=== PATIENT | female | born 1950 | race African-American/Black ===

== ENCOUNTER 2023-03-01 04:49 | Day surgery (SDC) | payer OTHER ==
[2023-02-24 17:01] VITALS: BMI 21.6
[2023-03-01] MEDS ORDERED: MIDAZOLAM HCL 2 MG/2 ML SINGLE DOSE VIAL ONE (12:25)
[2023-03-01] MEDS ORDERED: FENTANYL CITRATE/PF 50 MCG/ML VIAL ONE (12:25)
[2023-03-01] MEDS ORDERED: MIDAZOLAM HCL 2 MG/2 ML SINGLE DOSE VIAL IVPUSH ONE (13:00)
[2023-03-01 13:38] VITALS: RESP 16
[2023-03-01 17:30] LABS: HIV INTERPRETATION NEGATIVE (NEGATIVE)
[2023-03-01 18:35] VITALS: TEMP 97.6
[2023-03-01 18:38] VITALS: BP 138/70; PULSE 62
== END 2023-03-01 17:00 | disposition home or self-care (01) ==
LOC: JRADIR 04:49
PROVIDERS: ATTEND Internal Medicine Hematology & Oncology
PROC: 0FB03ZX Excision of Liver, Percutaneous Approach, Diagnostic (ICD-10-PCS; principal; 2023-03-01)
DX: C18.9 Malignant neoplasm of colon, unspecified (principal); C78.7 Secondary malignant neoplasm of liver and intrahepatic bile duct
CPT/HCPCS: 36415; 47000; 76705-TC; 76942-TC; 86704; 86705; 87340; 87389; 87517; 87522; 87899; 88307-TC; 88341-TC; 88342-TC

== ENCOUNTER 2023-08-06 10:06 | Emergency (ER) | payer OTHER ==
[2023-08-06 10:24] VITALS: BMI 23.3
[2023-08-06 11:38] LABS: POTASSIUM 4.1 mmol/L (3.5-5.1)
[2023-08-06 11:40] LABS: CALCIUM 9.2 mg/dL (8.5-10.1)
[2023-08-06 11:41] LABS: ALBUMIN 3.2 g/dl (3.4-5.0); BLOOD UREA NITROGEN 14.7 mg/dL (7-18); MAGNESIUM 2.3 mg/dL (1.8-2.4)
[2023-08-06 11:44] LABS: CREATININE 0.9 mg/dL (0.55-1.3)
[2023-08-06 11:46] LABS: BILIRUBIN,TOTAL 0.5 mg/dL (0.2-1); TOT PROT 7.3 g/dl (6.4-8.2)
[2023-08-06 12:27] LABS: BASO % 0.6 % (0-2.0); EOS % 1.6 % (0-4.5); HEMATOCRIT 35.3 % (32.4-45.2); HEMOGLOBIN 11.8 GM/dL (10.7-15.3); LYMPH % 13.7 % (8-40); MCH 28.1 pg (25.7-33.7); MCHC 33.3 g/dl (32.0-36.0); MEAN CELL VOLUME 84.3 fl (80-96); MEAN PLT VOLUME 7.1 fl (7.5-11.1); MONO % 8.2 % (3.8-10.2); NEUT % 75.9 % (42.8-82.8); PLATELET COUNT 429 10^3/uL (134-434); RBC 4.19 M/mm3 (3.60-5.2); RDW 16.6 % (11.6-15.6); WHITE BLOOD COUNT 5.9 K/mm3 (4.0-10.0)
[2023-08-06 12:37] LABS: INR 1.02 (0.83-1.09); PROTHROMBIN TIME (PATIENT) 11.8 SEC (9.7-13.0)
[2023-08-06 12:40] LABS: ACTIVATED PTT 32.5 SECONDS (25.2-36.5)
[2023-08-06 12:53] LABS: POTASSIUM 3.7 mmol/L (3.5-5.1)
[2023-08-06 12:54] LABS: CALCIUM 9.5 mg/dL (8.5-10.1)
[2023-08-06 12:55] LABS: ALBUMIN 3.5 g/dl (3.4-5.0); BLOOD UREA NITROGEN 14.7 mg/dL (7-18)
[2023-08-06 12:58] LABS: CREATININE 0.9 mg/dL (0.55-1.3)
[2023-08-06 13:00] LABS: BILIRUBIN,TOTAL 0.5 mg/dL (0.2-1)
[2023-08-06 13:30] LABS: PH,URINE 5.5 (5.0-8.0); URINE APPEARANCE Clear; URINE BILIRUBIN Negative (NEGATIVE); URINE COLOR Yellow; URINE GLUCOSE (UA) Negative (NEGATIVE); URINE KETONE Negative (NEGATIVE); URINE LEUK ESTERASE Negative (NEGATIVE); URINE NITRITE Negative (NEGATIVE); URINE PROTEIN Negative (NEGATIVE); URINE UROBILINOGEN 0.2 mg/dL (0.2-1.0)
[2023-08-06 16:50] VITALS: BP 135/76; PULSE 78; RESP 16; TEMP 98.2
== END 2023-08-06 17:00 ==
LOC: JER 10:06
DX: S01.111A Laceration without foreign body of right eyelid and periocular area, initial encounter (principal); S01.112A Laceration without foreign body of left eyelid and periocular area, initial encounter; X58.XXXA Exposure to other specified factors, initial encounter; Z20.822 Contact with and (suspected) exposure to COVID-19
CPT/HCPCS: 0241U-QW; 36415; 70450-TC; 70486-TC; 71045-TC-FY; 71250-TC; 72125-TC; 72170-TC-FY; 80053; 81003; 83735; 84484; 85025; 85610; 85730; 86850; 86900; 86901; 87086; 93005; 93010; 99285-25

== ENCOUNTER 2023-08-15 20:21 | Observation (INO) | payer OTHER ==
[2023-08-15] MEDS ORDERED: ACETAMINOPHEN 325 MG TABLET (FP) PO ONE (21:49)
[2023-08-15 23:00] LABS: EOS % 3.6 % (0-4.5); HEMOGLOBIN 10.9 GM/dL (10.7-15.3); LYMPH % 11.6 % (8-40); MCH 27.7 pg (25.7-33.7); MEAN PLT VOLUME 6.9 fl (7.5-11.1); MONO % 12.3 % (3.8-10.2); NEUT % 71.5 % (42.8-82.8); PLATELET COUNT 587 10^3/uL (134-434); RBC 3.93 M/mm3 (3.60-5.2); RDW 15.6 % (11.6-15.6); WHITE BLOOD COUNT 7.6 K/mm3 (4.0-10.0)
[2023-08-15] MEDS ORDERED: ACETAMINOPHEN 325 MG TABLET (FP) ONE (23:05)
[2023-08-15 23:32] LABS: POTASSIUM 4.9 mmol/L (3.5-5.1)
[2023-08-15 23:36] LABS: CALCIUM 9.1 mg/dL (8.5-10.1)
[2023-08-15 23:37] LABS: ALBUMIN 3.3 g/dl (3.4-5.0)
[2023-08-15 23:40] LABS: CREATININE 2.5 mg/dL (0.55-1.3)
[2023-08-15 23:41] LABS: BILIRUBIN,TOTAL 0.4 mg/dL (0.2-1); TOT PROT 7.8 g/dl (6.4-8.2)
[2023-08-15 23:44] LABS: BLOOD UREA NITROGEN 61.3 mg/dL (7-18)
[2023-08-16] MEDS ORDERED: SODIUM CHLORIDE 0.9% 500 ML INFUS.BAG IV ONE (00:26)
[2023-08-16 02:49] LABS: POTASSIUM 4.3 mmol/L (3.5-5.1)
[2023-08-16 02:51] LABS: BLOOD UREA NITROGEN 59.8 mg/dL (7-18); CALCIUM 8.9 mg/dL (8.5-10.1); MAGNESIUM 2.8 mg/dL (1.8-2.4)
[2023-08-16 02:55] LABS: CREATININE 2.3 mg/dL (0.55-1.3)
[2023-08-16] MEDS ORDERED: ACETAMINOPHEN 1000 MG/100 ML BAG IVPB PRN (05:25)
[2023-08-16] MEDS ORDERED: SODIUM CHLORIDE 0.45% 1,000 ML IV SCH (05:30)
[2023-08-16 08:58] LABS: BASO % 0.5 % (0-2.0); EOS % 3.1 % (0-4.5); HEMATOCRIT 31.6 % (32.4-45.2); HEMOGLOBIN 9.9 GM/dL (10.7-15.3); LYMPH % 10.1 % (8-40); MCHC 31.4 g/dl (32.0-36.0); MEAN CELL VOLUME 85.9 fl (80-96); MONO % 7.9 % (3.8-10.2); NEUT % 78.4 % (42.8-82.8); PLATELET COUNT 581 10^3/uL (134-434); RBC 3.68 M/mm3 (3.60-5.2); RDW 15.3 % (11.6-15.6); WHITE BLOOD COUNT 8.6 K/mm3 (4.0-10.0)
[2023-08-16 09:08] LABS: POTASSIUM 3.9 mmol/L (3.5-5.1)
[2023-08-16 09:16] LABS: BLOOD UREA NITROGEN 48.6 mg/dL (7-18)
[2023-08-16 09:17] LABS: CREATININE 1.4 mg/dL (0.55-1.3)
[2023-08-16] MEDS ORDERED: LACOSAMIDE 200 MG TABLET PO ONE ×2 (10:36→22:10)
[2023-08-16] MEDS: LOSARTAN POTASSIUM 50 MG TABLET PO SCH (10:46)
[2023-08-16] MEDS: LACOSAMIDE 200 MG TABLET PO SCH ×2 (10:47→22:17)
[2023-08-16] MEDS: HALOPERIDOL 1 MG TABLET PO SCH (10:47)
[2023-08-16] MEDS: amLODIPine BESYLATE 5 MG TABLET (FP) PO SCH (10:47)
[2023-08-16] MEDS: NICOTINE 14 MG/24 HOURS TOPICAL PATCH TD SCH (10:47)
[2023-08-16] MEDS: lamoTRIgine 100 MG TABLET PO SCH ×2 (10:47→22:17)
[2023-08-16] MEDS ORDERED: lamoTRIgine 100 MG TABLET ONE (21:26)
[2023-08-16] MEDS ORDERED: MIRTAZAPINE 15 MG TABLET (FP) ONE (21:26)
[2023-08-16] MEDS ORDERED: MIRTAZAPINE 15 MG TABLET (FP) PO SCH (22:00)
[2023-08-16] MEDS ORDERED: BENZTROPINE MESYLATE 0.5 MG TABLET (FP) PO SCH (22:00)
[2023-08-17 07:38] LABS: BASO % 0.8 % (0-2.0); EOS % 4.4 % (0-4.5); HEMATOCRIT 33.5 % (32.4-45.2); HEMOGLOBIN 10.8 GM/dL (10.7-15.3); LYMPH % 18.1 % (8-40); MCH 27.8 pg (25.7-33.7); MCHC 32.3 g/dl (32.0-36.0); MEAN CELL VOLUME 86.1 fl (80-96); MEAN PLT VOLUME 7.7 fl (7.5-11.1); MONO % 7.3 % (3.8-10.2); NEUT % 69.4 % (42.8-82.8); PLATELET COUNT 523 10^3/uL (134-434); RDW 15.6 % (11.6-15.6); WHITE BLOOD COUNT 6.1 K/mm3 (4.0-10.0)
[2023-08-17 08:35] LABS: POTASSIUM 4.3 mmol/L (3.5-5.1)
[2023-08-17 08:39] LABS: ALBUMIN 2.9 g/dl (3.4-5.0); CALCIUM 8.4 mg/dL (8.5-10.1); MAGNESIUM 2.3 mg/dL (1.8-2.4)
[2023-08-17 08:41] LABS: CREATININE 0.7 mg/dL (0.55-1.3); PHOSPHOROUS 2.4 mg/dL (2.5-4.9)
[2023-08-17 08:42] LABS: BILIRUBIN,TOTAL 0.6 mg/dL (0.2-1); TOT PROT 7.2 g/dl (6.4-8.2)
[2023-08-17 09:04] LABS: BLOOD UREA NITROGEN 21.6 mg/dL (7-18)
[2023-08-17] MEDS ORDERED: HALOPERIDOL DECANOATE 100 MG/ML IM SCH (10:00)
[2023-08-17] MEDS ORDERED: LOSARTAN POTASSIUM 50 MG TABLET ONE (10:27)
[2023-08-17] MEDS ORDERED: amLODIPine BESYLATE 5 MG TABLET (FP) ONE (10:27)
[2023-08-17] MEDS ORDERED: lamoTRIgine 100 MG TABLET ONE (10:28)
[2023-08-17] MEDS ORDERED: NICOTINE 14 MG/24 HOURS TOPICAL PATCH TD ONE (10:28)
[2023-08-17] MEDS ORDERED: LACOSAMIDE 200 MG TABLET PO ONE (10:28)
[2023-08-17] MEDS ORDERED: lamoTRIgine 25 MG TABLET ONE (10:28)
[2023-08-17 11:23] VITALS: RESP 18
[2023-08-17] MEDS: HALOPERIDOL 1 MG TABLET PO SCH (11:32)
[2023-08-17] MEDS: lamoTRIgine 100 MG TABLET PO SCH (11:32)
[2023-08-17] MEDS: NICOTINE 14 MG/24 HOURS TOPICAL PATCH TD SCH (11:32)
[2023-08-17] MEDS: LOSARTAN POTASSIUM 50 MG TABLET PO SCH (11:32)
[2023-08-17] MEDS: LACOSAMIDE 200 MG TABLET PO SCH (11:33)
[2023-08-17] MEDS: amLODIPine BESYLATE 5 MG TABLET (FP) PO SCH (11:33)
[2023-08-17 11:49] LABS: INR 1.06 (0.83-1.09); PROTHROMBIN TIME (PATIENT) 12.3 SEC (9.7-13.0)
[2023-08-17 11:51] LABS: ACTIVATED PTT 34.2 SECONDS (25.2-36.5)
[2023-08-17 13:17] VITALS: TEMP 97.8; BMI 16.0
[2023-08-17] MEDS ORDERED: NAPH,MB-DB/K PH,MBDB POWDER PACKET PO ONE (14:00)
[2023-08-17 18:33] VITALS: BP 119/62; PULSE 86
== END 2023-08-17 18:53 ==
LOC: JER 20:21 → JERBED 08-16 05:16 → J4W 08-17 11:58
PROVIDERS: ADMIT Internal Medicine; ATTEND Family Medicine
PROC: 3E023GC Introduction of Other Therapeutic Substance into Muscle, Percutaneous Approach (ICD-10-PCS; principal; 2023-08-16)
PROC: 3E0337Z Introduction of Electrolytic and Water Balance Substance into Peripheral Vein, Percutaneous Approach (ICD-10-PCS; 2023-08-16)
DX: N17.9 Acute kidney failure, unspecified (principal); S22.32XA Fracture of one rib, left side, initial encounter for closed fracture; W18.39XA Other fall on same level, initial encounter; F03.90 Unspecified dementia, unspecified severity, without behavioral disturbance, psychotic disturbance, mood disturbance, and anxiety; Z91.81 History of falling; Y93.89 Activity, other specified; Y92.098 Other place in other non-institutional residence as the place of occurrence of the external cause; R07.89 Other chest pain; K25.9 Gastric ulcer, unspecified as acute or chronic, without hemorrhage or perforation; G40.909 Epilepsy, unspecified, not intractable, without status epilepticus; E78.5 Hyperlipidemia, unspecified; J44.9 Chronic obstructive pulmonary disease, unspecified; R13.10 Dysphagia, unspecified; I10 Essential (primary) hypertension; C18.8 Malignant neoplasm of overlapping sites of colon; F20.9 Schizophrenia, unspecified; Z87.891 Personal history of nicotine dependence; R16.0 Hepatomegaly, not elsewhere classified; Z88.8 Allergy status to other drugs, medicaments and biological substances; Z91.018 Allergy to other foods
CPT/HCPCS: 36415; 70450-TC; 71045-TC-FY; 72125-TC; 72170-TC-FY; 73030-TC-RT-FY; 73070-TC-LT-FY; 73090-TC-LT-FY; 80048; 80053; 82550; 82553; 82728; 83540; 83550; 83735; 84100; 84484; 85025; 85610; 85730; 93005; 93010; 96360; 96372; 99285-25; G0378

== ENCOUNTER 2023-08-18 22:12 | Observation (INO) | payer OTHER ==
[2023-08-18 22:38] VITALS: BMI 23.8
[2023-08-19 02:22] LABS: BASO % 0.7 % (0-2.0); HEMATOCRIT 34.5 % (32.4-45.2); HEMOGLOBIN 10.9 GM/dL (10.7-15.3); LYMPH % 22.4 % (8-40); MCH 27.4 pg (25.7-33.7); MCHC 31.6 g/dl (32.0-36.0); MEAN CELL VOLUME 86.8 fl (80-96); MEAN PLT VOLUME 7.4 fl (7.5-11.1); NEUT % 65.9 % (42.8-82.8); PLATELET COUNT 739 10^3/uL (134-434); RBC 3.97 M/mm3 (3.60-5.2); RDW 15.2 % (11.6-15.6); WHITE BLOOD COUNT 7.7 K/mm3 (4.0-10.0)
[2023-08-19 02:23] LABS: INR 1.03 (0.83-1.09)
[2023-08-19 02:26] LABS: ACTIVATED PTT 36.5 SECONDS (25.2-36.5)
[2023-08-19 02:34] LABS: EPI CELLS 11 /uL (0-25.1); HYALINE CASTS 7 /uL (0-3.1); PH,URINE 5.5 (5.0-8.0); URINE APPEARANCE CLOUDY; URINE BACTERIA >9,000 /uL (0-1359); URINE BILIRUBIN NEGATIVE (NEGATIVE); URINE COLOR DK YELLOW; URINE GLUCOSE (UA) NEGATIVE (NEGATIVE); URINE KETONE TRACE (NEGATIVE); URINE LEUK ESTERASE 2+ (NEGATIVE); URINE NITRITE POSITIVE (NEGATIVE); URINE PROTEIN 1+ (NEGATIVE); URINE RBC 30 /uL (0-23.9); URINE WBC 315 /uL (0-25.8)
[2023-08-19] MEDS ORDERED: PIPERACILLIN/TAZOB 4.5 GM 4.5 GM in DEXTROSE 5%-WATER 100 ML IVPB ONE (03:19)
[2023-08-19] MEDS ORDERED: VANCOMYCIN 1,000 MG in DEXTROSE 5%-WATER - 250 ML IVPB ONE (03:19)
[2023-08-19] MEDS ORDERED: PIPERACILLIN/TAZOB 4.5 GM 4.5 GM/100 ML BAG IVPB ONE (03:26)
[2023-08-19] MEDS ORDERED: VANCOMYCIN 1 GRAM (PRE-DOCKED) 1,000 MG/250 ML BAG IVPB ONE (03:26)
[2023-08-19 03:43] LABS: POTASSIUM 4.7 mmol/L (3.5-5.1)
[2023-08-19 03:45] LABS: CALCIUM 9.6 mg/dL (8.5-10.1)
[2023-08-19 03:46] LABS: MAGNESIUM 2.5 mg/dL (1.8-2.4)
[2023-08-19] MEDS ORDERED: DIPHTH,PERTUSS(ACELL),TET 0.5 ML DISP.SYRIN IM ONE ×2 (03:48→03:55)
[2023-08-19 03:49] LABS: CREATININE 1.3 mg/dL (0.55-1.3)
[2023-08-19 03:50] LABS: TOT PROT 8.6 g/dl (6.4-8.2)
[2023-08-19 03:51] LABS: BILIRUBIN,TOTAL 0.4 mg/dL (0.2-1)
[2023-08-19 03:58] LABS: ALBUMIN 3.6 g/dl (3.4-5.0)
[2023-08-19] MEDS ORDERED: SODIUM CHLORIDE 0.9% 500 ML INFUS.BAG IV ONE (06:10)
[2023-08-19] MEDS ORDERED: ACETAMINOPHEN 325 MG TABLET (FP) PO PRN (07:23)
[2023-08-19] MEDS ORDERED: SODIUM CHLORIDE 0.45% 1,000 ML IV SCH (07:30)
[2023-08-19 07:42] VITALS: RESP 18
[2023-08-19] MEDS ORDERED: LOSARTAN POTASSIUM 50 MG TABLET ONE (09:35)
[2023-08-19] MEDS ORDERED: LACOSAMIDE 200 MG TABLET PO ONE (09:36)
[2023-08-19] MEDS ORDERED: NICOTINE 14 MG/24 HOURS TOPICAL PATCH TD ONE (09:36)
[2023-08-19] MEDS ORDERED: lamoTRIgine 25 MG TABLET ONE (09:36)
[2023-08-19] MEDS ORDERED: lamoTRIgine 100 MG TABLET ONE (09:36)
[2023-08-19] MEDS ORDERED: LACOSAMIDE 200 MG TABLET PO SCH (10:00)
[2023-08-19] MEDS ORDERED: CAPECITABINE 500 MG TABLET PO SCH (10:00)
[2023-08-19] MEDS ORDERED: HALOPERIDOL 0.5 MG TABLET PO SCH (10:00)
[2023-08-19] MEDS ORDERED: LOSARTAN POTASSIUM 50 MG TABLET PO SCH (10:00)
[2023-08-19] MEDS ORDERED: NICOTINE 14 MG/24 HOURS TOPICAL PATCH TD SCH (10:00)
[2023-08-19] MEDS ORDERED: lamoTRIgine 100 MG TABLET PO SCH (10:00)
[2023-08-19 13:51] LABS: POTASSIUM 4.4 mmol/L (3.5-5.1)
[2023-08-19 13:52] LABS: BLOOD UREA NITROGEN 23.7 mg/dL (7-18)
[2023-08-19 14:16] VITALS: BP 123/67; PULSE 81; TEMP 99.2
[2023-08-19] MEDS ORDERED: BENZTROPINE MESYLATE 0.5 MG TABLET (FP) PO SCH (22:00)
[2023-08-19] MEDS ORDERED: MIRTAZAPINE 15 MG TABLET (FP) PO SCH (22:00)
[2023-08-19] MEDS ORDERED: LATANOPROST 0.005% OPHTH SOLN 2.5ML BOTTLE OS SCH (22:00)
== END 2023-08-19 15:35 ==
LOC: JER 22:12 → JERBED 08-19 03:38
PROVIDERS: ADMIT Internal Medicine; ATTEND Family Medicine
PROC: 3E0234Z Introduction of Serum, Toxoid and Vaccine into Muscle, Percutaneous Approach (ICD-10-PCS; principal; 2023-08-19)
PROC: 3E03329 Introduction of Other Anti-infective into Peripheral Vein, Percutaneous Approach (ICD-10-PCS; 2023-08-19)
PROC: 3E0337Z Introduction of Electrolytic and Water Balance Substance into Peripheral Vein, Percutaneous Approach (ICD-10-PCS; 2023-08-19)
DX: Z04.3 Encounter for examination and observation following other accident (principal); W18.39XA Other fall on same level, initial encounter; Y93.89 Activity, other specified; Y92.099 Unspecified place in other non-institutional residence as the place of occurrence of the external cause; F03.90 Unspecified dementia, unspecified severity, without behavioral disturbance, psychotic disturbance, mood disturbance, and anxiety; R56.9 Unspecified convulsions; E78.5 Hyperlipidemia, unspecified; N20.0 Calculus of kidney; J44.9 Chronic obstructive pulmonary disease, unspecified; F20.9 Schizophrenia, unspecified; Z23 Encounter for immunization; I10 Essential (primary) hypertension; Z85.038 Personal history of other malignant neoplasm of large intestine; Z85.05 Personal history of malignant neoplasm of liver; Z88.8 Allergy status to other drugs, medicaments and biological substances; Z91.018 Allergy to other foods
CPT/HCPCS: 0241U-QW; 36415; 70450-TC; 71045-TC-FY; 72125-TC; 72170-TC-FY; 80048; 80053; 81003; 83735; 84484; 85025; 85610; 85730; 87086; 87186; 90471; 90715; 93005; 93010; 96365; 96368; 99285-25; G0378